=== PATIENT | female | born 1985 | race Two or more races ===

== ENCOUNTER → 2018-10-24 | Outpatient (CLI) | payer OTHER ==
--- NOTE | 2018-10-24 14:25 | RAD ---
Exam performed: Pelvic ultrasound. Indication: Evaluation of IUD. Only half IUD was retrieved during removal. Date of Service: 10/24/2018. Comparison: None available Technique: Transabdominal and transvaginal Findings: The uterus measures 8.8 x 3.8 x 5.0 cm. The endometrial stripe measures 4.9 mm. Few echogenic foci are seen in the endometrial stripe. There are nabothian cysts in the cervix Bilateral ovaries are normal. The right ovary measures 3.4 x 2.1 x 2.7 cm.The left ovary measures 3.6 x 2.0 x 3.3 cm . Symmetric vascularity to both ovaries. There is no free fluid in the posterior cul-de-sac. Impression: 1. Normal uterus. Few punctate hyperechoic areas seen in the endometrial cavity. It is not clear if this is related to an adrenal calcification or remnant IUD. CT of the pelvis may be obtained to better evaluate. 2. Normal bilateral ovaries. Electronically signed by: Nithya Silva MD (10/24/2018 2:22 PM) [facility]
== END | disposition home or self-care (01) ==
LOC: US 12:14 → EDSEX 12:14
PROVIDERS: ATTEND Nurse Practitioner Obstetrics & Gynecology
DX: Z30.431 Encounter for routine checking of intrauterine contraceptive device (principal); N88.8 Other specified noninflammatory disorders of cervix uteri
CPT/HCPCS: 76830; 76856

== ENCOUNTER → 2019-01-04 | Outpatient (CLI) | payer OTHER ==
--- NOTE | 2019-01-04 11:19 | RAD ---
PQRS Compliance Statement: One or more of the following individualized dose reduction techniques were utilized for this examination: 1. Automated exposure control 2. Adjustment of the mA and/or kV according to patient size 3. Use of iterative reconstruction technique CT pelvis without contrast 10/04/2018 INDICATION: Retained IUD. COMPARISON: Ultrasound pelvis 10/24/2018 TECHNIQUE: Multiple axial CT images of the pelvis were obtained without intravenous contrast. Coronal and sagittal reformats are provided. FINDINGS: Distal abdominal aorta and pelvic vasculature appear intact. Small and large bowel are normal in caliber. There is no evidence for bowel obstruction. There are no pericolonic inflammatory changes. A normal, nondilated appendix is visualized without adjacent inflammatory changes. Urinary bladder is within normal limits given degree of distention. No free fluid or free intraperitoneal air. No pathologically enlarged pelvic lymph nodes. No suspicious osseous normality is identified. Uterus and adnexa are normal by CT. There is a 1.8 cm metallic device in the region of the lower uterine segment or cervix. IMPRESSION: Metallic device is identified in the lower uterine segment/cervix measuring 1.8 cm. This may correspond with patient's IUD. Electronically signed by: Natalee Smith MD (01/04/2019 11:16 AM) [facility]
== END | disposition home or self-care (01) ==
LOC: CT 10:24
PROVIDERS: ATTEND Nurse Practitioner Women's Health
DX: Z30.431 Encounter for routine checking of intrauterine contraceptive device (principal)
CPT/HCPCS: 72192